=== PATIENT | female | born 1950 | race Caucasian/White ===

== ENCOUNTER 2016-07-16 12:29 | Inpatient (IN) | payer OTHER, BC ==
[~2016-07-16] VITALS: Ht 165.1 cm; Wt 139.0 kg
[~2016-07-16 12:29] MED LIST: ALDACTONE25 MG PO; AMLODIPINE BESY10 MG PO; AMLODIPINE BESYL5 MG PO; ASPIRIN E.C.81 M1 PO; ASPIRIN81 M2 PO; ATARAX,VISTARIL25 MG PO; ATIVAN1 M1 PO; ATORVASTATIN CA10 MG PO; Aspirin E.C. PO; BUSPAR10 MG PO; BUSPAR5 MG PO; BUSPIRONE HCL10 MG PO; CARTIA XT180 MG PO; CEFTIN500 MG PO; CEFTRIAXONE2 G1 IV; CELEXA20 MG PO; CEPHALEXIN500 MG PO; CITALOPRAM HBR20 MG PO; COUMADIN10 MG PO; COUMADIN4 MG PO; COUMADIN6 MG PO; COUMADIN7.5 MG PO; CYMBALTA60 MG PO; Cardizem CD,Cartia X PO; Cipro PO; DAILY VITE1 EAC1 PO; DILTIAZEM 24HR180 MG PO; DIOVAN HCT 11 TABLET PO; DOCUSATE SODIU100 MG PO; DOXYCYCLINE HY100 M3 PO; DULCOLAX5 MG PO; EFFEXOR XR75 MG PO; ELIQUIS2.5 MG PO; ELIQUIS5 MG PO; FISH OIL 1,0001 EAC7 PO; FLONASE16 G1 BOTH NARES; FUROSEMIDE40 MG PO; GABAPENTIN300 MG PO; GLIPIZIDE XL10 MG PO; GLIPIZIDE10 M1 PO; GLIPIZIDE5 MG PO; GLUCOPHAGE1000 MG PO; GLUCOTROL XL10 MG PO; Glucotrol PO; Glucotrol XL PO; HUMALOG100 UNIT/1 SC; HUMULIN R500 UNITS/ SC; HYDROCHLOROTH12.5 M3 PO; HYDROXYZINE HCL25 MG PO; INSULIN LONG ACTING SC; INSULIN SHORT ACTING SC; JANUVIA100 MG PO; KEFLEX500 MG PO; KETOCONAZOLE60 GM TP; LANTUS 10100 UNITS/ SC; LANTUS 3 M100 UNITS/ SC; LANTUS100 UNIT/1 SQ; LEVEMIR FL100 UNIT/1 SC; LEVEMIR100 UNIT/2 SC; LIPITOR40 MG PO; LISINOPRIL20 MG PO; LISINOPRIL40 MG PO; LO-DOSE ASPIRIN81 M1 PO; LOPRESSOR100 M1 PO; LOVENOX120 MG/0.8 SC; Lasix PO; Lopressor PO; METFORMIN HCL1000 M1 PO; METFORMIN HCL1000 MG PO; METOPROLOL TAR100 MG PO; MUPIROCIN15 GM TP; NEURONTIN300 MG PO; NOVOLOG 10100 UNITS/ SC; NOVOLOG PE100 UNITS/ SC; NYSTATIN-TRIAMC15 GM TP; NYSTATIN15 GM TP; PERCOCET 5/31 TABLET PO; PREDNISONE10 MG PO; Percocet 5/325,Endoc PO; SIMVASTATIN40 M1 PO; ST. JOSEPH ASPI81 MG PO; TAZTIA XT180 M1 PO; TOPROL XL100 MG PO; TRAMADOL HCL50 MG PO; VENLAFAXINE HC150 M1 PO; VENLAFAXINE HCL75 M3 PO; VENLAFAXINE HCL75 MG PO; VITAMIN D1000 UNIT PO; VITAMIN D31000 UNIT PO; VITAMIN E100 UNIT PO; WARFARIN SODIU7.5 MG PO; Xarelto PO; ZYVOX600 MG PO; celeXA PO
[2016-07-16 13:34] LABS: HEMATOCRIT 37.3 % (36.0-46.0); MCH 30.3 PG (29.0-34.0); MCHC 32.7 G/DL (30.0-36.0); MCV 92.8 FL (83-99); MEAN PLAT.VOLUME 9.8 uM^3 (9.5-12.4); PLATELET COUNT 312 K/uL (156-360); RBC DIS.WIDTH-CV 14.8 % (11.8-14.6); RBC DIS.WIDTH-SD 48.1 % (39-53); RED BLOOD COUNT 4.02 M/uL (3.80-5.20); WHITE BLOOD COUNT 10.5 K/uL (4.1-10.2)
[2016-07-16 13:45] LABS: CHLORIDE 98 mEq/L (99-109); POTASSIUM 4.6 mEq/L (3.7-5.4); SODIUM 134 mEq/L (136-147)
[2016-07-16 13:48] LABS: ANION GAP 10 MEQ/L (2-14)
[2016-07-16 13:50] LABS: GFR ESTIMATE (CALCULATED) > 59 mL/min/
[2016-07-16 13:51] LABS: UREA NITROGEN (BUN) 17 mg/dL (9-23)
[2016-07-16 13:53] LABS: GLUCOSE 543 mg/dL (70-99)
[2016-07-16 13:56] LABS: TROP-I INTERPRETATION NEGATIVE; TROPONIN-I 0.06 ng/mL (0.0-0.30)
[2016-07-16] MEDS ORDERED: XARELTO20 MG PO (15:47)
[2016-07-16] MEDS ORDERED: CEFDINIR300 MG PO (17:08)
[2016-07-16] MEDS ORDERED: MILK OF MAGN PO (17:10)
[2016-07-16] MEDS ORDERED: NOVOLIN N100 UNITS/ SC (17:12)
[2016-07-16] MEDS ORDERED: NOVOLIN,HU100 UNITS1 SC (17:12)
[2016-07-16] MEDS ORDERED: TEMOVATE 0.05%30 GM TP (17:17)
[2016-07-16 17:31] LABS: POINT-OF-CARE METER ID UU14100415; POINT-OF-CARE USER ID PUTMLD10
[2016-07-16 20:18] VITALS: BP 136/69
[2016-07-16 20:28] LABS: TROP-I INTERPRETATION NEGATIVE; TROPONIN-I 0.06 ng/mL (0.0-0.30)
[2016-07-17 00:27] VITALS: BP 150/79
[2016-07-17 02:34] LABS: TROP-I INTERPRETATION NEGATIVE; TROPONIN-I 0.05 ng/mL (0.0-0.30)
[2016-07-17 04:21] VITALS: BP 159/75
[2016-07-17 07:39] VITALS: BP 176/79
[2016-07-17 08:27] LABS: HEMATOCRIT 36.1 % (36.0-46.0); MCH 30.6 PG (29.0-34.0); MCHC 32.7 G/DL (30.0-36.0); MCV 93.8 FL (83-99); MEAN PLAT.VOLUME 9.8 uM^3 (9.5-12.4); PLATELET COUNT 295 K/uL (156-360); RED BLOOD COUNT 3.85 M/uL (3.80-5.20); WHITE BLOOD COUNT 8.7 K/uL (4.1-10.2)
[2016-07-17 08:39] LABS: ANION GAP 7 MEQ/L (2-14); CHLORIDE 98 MEQ/L (99-109); GFR ESTIMATE (CALCULATED) > 59 mL/min/; SAMPLE HEMOLYSIS CHECK 0; SAMPLE ICTERIC CHECK 0; SAMPLE LIPEMIA CHECK 0; SODIUM 137 MEQ/L (136-147); UREA NITROGEN (BUN) 13 mg/dL (9-23)
[2016-07-17 08:40] LABS: GLUCOSE 199 mg/dL (70-99); POTASSIUM 3.5 MEQ/L (3.7-5.4)
[2016-07-17 11:52] VITALS: BP 138/64
[2016-07-17 15:39] VITALS: BP 148/63
[2016-07-17 19:44] VITALS: BP 145/58
[2016-07-18 00:46] VITALS: BP 157/33; BP 157/73
[2016-07-18 04:04] VITALS: BP 141/68
[2016-07-18 08:07] VITALS: BP 141/64
[2016-07-18 08:34] LABS: HEMATOCRIT 39.9 % (36.0-46.0); MCH 30.4 PG (29.0-34.0); MCHC 32.6 G/DL (30.0-36.0); MCV 93.2 FL (83-99); MEAN PLAT.VOLUME 10.5 uM^3 (9.5-12.4); PLATELET COUNT 333 K/uL (156-360); RBC DIS.WIDTH-CV 14.6 % (11.8-14.6); RBC DIS.WIDTH-SD 49.4 % (39-53); RED BLOOD COUNT 4.28 M/uL (3.80-5.20); WHITE BLOOD COUNT 8.8 K/uL (4.1-10.2)
[2016-07-18 08:56] LABS: ANION GAP 9 MEQ/L (2-14); CHLORIDE 98 MEQ/L (99-109); GFR ESTIMATE (CALCULATED) > 59 mL/min/; GLUCOSE 290 mg/dL (70-99); POTASSIUM 4.5 MEQ/L (3.7-5.4); SAMPLE HEMOLYSIS CHECK 0; SAMPLE ICTERIC CHECK 0; SAMPLE LIPEMIA CHECK 0; SODIUM 137 MEQ/L (136-147); UREA NITROGEN (BUN) 15 mg/dL (9-23)
[2016-07-18 11:25] VITALS: BP 147/73
[2016-07-18 16:25] VITALS: BP 149/66
[2016-07-18 20:00] VITALS: BP 142/64
[2016-07-19] VITALS: BP 161/73
[2016-07-19 04:00] VITALS: BP 166/80
[2016-07-19 06:56] LABS: HEMATOCRIT 37.5 % (36.0-46.0); MCH 30.5 PG (29.0-34.0); MCHC 33.1 G/DL (30.0-36.0); MCV 92.4 FL (83-99); MEAN PLAT.VOLUME 10.1 uM^3 (9.5-12.4); PLATELET COUNT 337 K/uL (156-360); RBC DIS.WIDTH-CV 14.6 % (11.8-14.6); RBC DIS.WIDTH-SD 49.6 % (39-53); RED BLOOD COUNT 4.06 M/uL (3.80-5.20)
[2016-07-19 06:58] LABS: WHITE BLOOD COUNT 11.6 K/uL (4.1-10.2)
[2016-07-19 07:21] LABS: ANION GAP 7 MEQ/L (2-14); CHLORIDE 91 MEQ/L (99-109); GFR ESTIMATE (CALCULATED) > 59 mL/min/; POTASSIUM 4.3 MEQ/L (3.7-5.4); SAMPLE HEMOLYSIS CHECK 0; SAMPLE ICTERIC CHECK 0; SAMPLE LIPEMIA CHECK 0; UREA NITROGEN (BUN) 22 mg/dL (9-23)
[2016-07-19 07:30] LABS: GLUCOSE 428 mg/dL (70-99); SODIUM 130 MEQ/L (136-147)
[2016-07-19 07:49] VITALS: BP 168/79
[2016-07-19 11:05] VITALS: BP 159/74
[2016-07-19 11:26] LABS: POINT-OF-CARE METER ID UU14188625
[2016-07-19 11:26] LABS: POINT-OF-CARE METER ID UU14188625
[2016-07-19 15:06] VITALS: BP 129/63
[2016-07-19 20:00] VITALS: BP 147/66
[2016-07-20] VITALS: BP 133/64
[2016-07-20 04:00] VITALS: BP 141/68
[2016-07-20 04:08] LABS: HEMATOCRIT 38.4 % (36.0-46.0); MCH 29.8 PG (29.0-34.0); MCHC 32.3 G/DL (30.0-36.0); MCV 92.3 FL (83-99); MEAN PLAT.VOLUME 9.8 uM^3 (9.5-12.4); PLATELET COUNT 323 K/uL (156-360); RBC DIS.WIDTH-CV 14.6 % (11.8-14.6); RBC DIS.WIDTH-SD 47.6 % (39-53); RED BLOOD COUNT 4.16 M/uL (3.80-5.20); WHITE BLOOD COUNT 11.3 K/uL (4.1-10.2)
[2016-07-20 04:19] LABS: CHLORIDE 92 mEq/L (99-109); POTASSIUM 4.5 mEq/L (3.7-5.4); SODIUM 132 mEq/L (136-147)
[2016-07-20 04:22] LABS: ANION GAP 10 MEQ/L (2-14)
[2016-07-20 04:24] LABS: GFR ESTIMATE (CALCULATED) > 59 mL/min/
[2016-07-20 04:25] LABS: UREA NITROGEN (BUN) 25 mg/dL (9-23)
[2016-07-20 04:30] LABS: GLUCOSE 422 mg/dL (70-99)
[2016-07-20 08:17] LABS: POINT-OF-CARE METER ID UU14174225
[2016-07-20 08:48] VITALS: BP 128/64
[2016-07-20 11:30] VITALS: BP 151/57
[2016-07-20 16:57] LABS: POINT-OF-CARE METER ID UU14174225
[2016-07-21 02:55] LABS: POINT-OF-CARE METER ID UU14174225
[2016-07-21 04:00] VITALS: BP 132/65
[2016-07-21 08:19] LABS: POINT-OF-CARE METER ID UU14188625
[2016-07-21 08:21] VITALS: BP 132/66
[2016-07-21 10:50] LABS: HEMATOCRIT 41.6 % (36.0-46.0); MCH 29.4 PG (29.0-34.0); MCHC 31.7 G/DL (30.0-36.0); MCV 92.7 FL (83-99); MEAN PLAT.VOLUME 10.2 uM^3 (9.5-12.4); PLATELET COUNT 318 K/uL (156-360); RBC DIS.WIDTH-CV 14.4 % (11.8-14.6); RBC DIS.WIDTH-SD 48.8 % (39-53); RED BLOOD COUNT 4.49 M/uL (3.80-5.20); WHITE BLOOD COUNT 12.9 K/uL (4.1-10.2)
[2016-07-21 11:07] LABS: ANION GAP 12 MEQ/L (2-14); CHLORIDE 89 MEQ/L (99-109); GFR ESTIMATE (CALCULATED) > 59 mL/min/; GLUCOSE 373 mg/dL (70-99); SAMPLE HEMOLYSIS CHECK 0; SAMPLE ICTERIC CHECK 0; SAMPLE LIPEMIA CHECK 0; SODIUM 129 MEQ/L (136-147); UREA NITROGEN (BUN) 25 mg/dL (9-23)
[2016-07-21 12:15] LABS: POINT-OF-CARE METER ID UU14188625
[2016-07-21 12:16] VITALS: BP 143/61
[2016-07-21 15:57] VITALS: BP 140/62
[2016-07-21 19:18] VITALS: BP 148/75
[2016-07-21 23:29] VITALS: BP 170/71
[2016-07-22 04:07] VITALS: BP 156/69
[2016-07-22 07:44] VITALS: BP 156/81
[2016-07-22 10:56] LABS: ANION GAP 9 MEQ/L (2-14); CHLORIDE 92 MEQ/L (99-109); GFR ESTIMATE (CALCULATED) > 59 mL/min/; GLUCOSE 365 mg/dL (70-99); POTASSIUM 4.2 MEQ/L (3.7-5.4); SAMPLE HEMOLYSIS CHECK 0; SAMPLE ICTERIC CHECK 0; SAMPLE LIPEMIA CHECK 0; SODIUM 132 MEQ/L (136-147); UREA NITROGEN (BUN) 26 mg/dL (9-23)
[2016-07-22 11:42] VITALS: BP 157/74
[2016-07-22 20:45] LABS: POINT-OF-CARE METER ID UU14174225
[2016-07-23 00:19] VITALS: BP 143/67
[2016-07-23 08:19] VITALS: BP 132/64
[2016-07-23 09:23] LABS: POINT-OF-CARE METER ID UU14174225
[2016-07-23 10:10] LABS: HEMATOCRIT 42.3 % (36.0-46.0); MCH 29.2 PG (29.0-34.0); MCHC 31.4 G/DL (30.0-36.0); MEAN PLAT.VOLUME 10.2 uM^3 (9.5-12.4); PLATELET COUNT 286 K/uL (156-360); RBC DIS.WIDTH-CV 14.5 % (11.8-14.6); RED BLOOD COUNT 4.55 M/uL (3.80-5.20)
[2016-07-23 10:12] LABS: WHITE BLOOD COUNT 7.9 K/uL (4.1-10.2)
[2016-07-23 10:24] LABS: ANION GAP 7 MEQ/L (2-14); CHLORIDE 94 MEQ/L (99-109); GFR ESTIMATE (CALCULATED) > 59 mL/min/; GLUCOSE 259 mg/dL (70-99); POTASSIUM 3.9 MEQ/L (3.7-5.4); SAMPLE HEMOLYSIS CHECK 0; SAMPLE ICTERIC CHECK 0; SAMPLE LIPEMIA CHECK 0; SODIUM 135 MEQ/L (136-147); UREA NITROGEN (BUN) 27 mg/dL (9-23)
[2016-07-23 10:53] VITALS: BP 130/68
[2016-07-23 16:00] VITALS: BP 135/69
[2016-07-24 08:00] VITALS: BP 151/82
[2016-07-24 09:05] LABS: POINT-OF-CARE METER ID UU14188625
[2016-07-24 09:24] LABS: HEMATOCRIT 43.4 % (36.0-46.0); MCH 30.7 PG (29.0-34.0); MCHC 32.9 G/DL (30.0-36.0); MCV 93.1 FL (83-99); MEAN PLAT.VOLUME 10.6 uM^3 (9.5-12.4); PLATELET COUNT 306 K/uL (156-360); RBC DIS.WIDTH-CV 14.6 % (11.8-14.6); RED BLOOD COUNT 4.66 M/uL (3.80-5.20); WHITE BLOOD COUNT 7.7 K/uL (4.1-10.2)
[2016-07-24 09:50] LABS: ANION GAP 7 MEQ/L (2-14); CHLORIDE 97 MEQ/L (99-109); GFR ESTIMATE (CALCULATED) > 59 mL/min/; GLUCOSE 146 mg/dL (70-99); POTASSIUM 3.9 MEQ/L (3.7-5.4); SAMPLE HEMOLYSIS CHECK 0; SAMPLE ICTERIC CHECK 0; SAMPLE LIPEMIA CHECK 0; SODIUM 138 MEQ/L (136-147); UREA NITROGEN (BUN) 25 mg/dL (9-23)
[2016-07-24 12:00] VITALS: BP 150/67
[2016-07-24 12:33] LABS: POINT-OF-CARE METER ID UU14188625
[2016-07-24] MEDS ORDERED: ADVAIR HFA120 INHALA IH (14:21)
[2016-07-24] MEDS ORDERED: PREDNISONE20 MG PO (14:21)
[2016-07-24] MEDS ORDERED: LASIX40 MG PO (14:21)
[2016-07-24] MEDS ORDERED: BENZONATATE100 MG PO (14:21)
[2016-07-24] MEDS ORDERED: SPIRIVA RESPIMAT4 GM IH (14:21)
[2016-07-24 16:00] VITALS: BP 128/69
[2016-07-24 17:14] LABS: POINT-OF-CARE METER ID UU14188625
[2016-07-26 11:54] LABS: POINT-OF-CARE METER ID UU14174225
== END 2016-07-24 18:34 | DRG 190 ==
LOC: EME → EDBD 12:29 → EME 12:29 → 5SOUTH 17:54 → EDOF 17:54 → 5SOUTH 19:36
PROVIDERS: Emergency Medicine; Hospitalist; Nurse Practitioner Family
PROC: 5A09357 Assistance with Respiratory Ventilation, Less than 24 Consecutive Hours, Continuous Positive Airway Pressure (ICD-10-PCS; principal; 2016-07-17)
PROC: 0HDMXZZ Extraction of Right Foot Skin, External Approach (ICD-10-PCS; 2016-07-19)
DX: J44.0 Chronic obstructive pulmonary disease with (acute) lower respiratory infection (principal); J18.9 Pneumonia, unspecified organism; E87.1 Hypo-osmolality and hyponatremia; L97.509 Non-pressure chronic ulcer of other part of unspecified foot with unspecified severity; E66.01 Morbid (severe) obesity due to excess calories; Z68.43 Body mass index [BMI] 50.0-59.9, adult; I50.23 Acute on chronic systolic (congestive) heart failure; J96.01 Acute respiratory failure with hypoxia; G47.33 Obstructive sleep apnea (adult) (pediatric); L12.0 Bullous pemphigoid; E11.40 Type 2 diabetes mellitus with diabetic neuropathy, unspecified; E11.65 Type 2 diabetes mellitus with hyperglycemia; E11.621 Type 2 diabetes mellitus with foot ulcer; I25.2 Old myocardial infarction; E78.5 Hyperlipidemia, unspecified; I10 Essential (primary) hypertension; I87.2 Venous insufficiency (chronic) (peripheral); I27.2 Other secondary pulmonary hypertension; J45.901 Unspecified asthma with (acute) exacerbation; Z95.5 Presence of coronary angioplasty implant and graft; J44.1 Chronic obstructive pulmonary disease with (acute) exacerbation; J98.11 Atelectasis; L89.893 Pressure ulcer of other site, stage 3; K59.04 Chronic idiopathic constipation; I89.0 Lymphedema, not elsewhere classified; L97.411 Non-pressure chronic ulcer of right heel and midfoot limited to breakdown of skin
CPT/HCPCS: 71010; 71020; 71275; 80048; 82948; 83880; 84484; 85027; 87040; 87070; 87205; 93005; 93306; 94640; 94640 76; 94660; 94760; 94799; 97530 GP; 99202; 99281; 99285; J0456; J0696; J1815; J1940; J2405; J2543; J2930; J3370; J7030; J7050; J7512; J7644

== ENCOUNTER 2016-09-02 13:26 | Inpatient (IN) | payer OTHER, BC ==
[~2016-09-02] VITALS: Ht 165.1 cm; Wt 124.4 kg
[~2016-09-02 13:26] MED LIST changes: +ADVAIR HFA120 INHALA IH; +BENZONATATE100 MG PO; +CEFDINIR300 MG PO; +LASIX40 MG PO; +MILK OF MAGN PO; +NOVOLIN N100 UNITS/ SC; +NOVOLIN,HU100 UNITS1 SC; +PREDNISONE20 MG PO; +SPIRIVA RESPIMAT4 GM IH; +TEMOVATE 0.05%30 GM TP; +XARELTO20 MG PO
[2016-09-02 13:48] LABS: HEMATOCRIT 41.6 % (36.0-46.0); MCH 30.4 PG (29.0-34.0); MCHC 33.2 G/DL (30.0-36.0); MCV 91.6 FL (83-99); MEAN PLAT.VOLUME 9.9 uM^3 (9.5-12.4); PLATELET COUNT 286 K/uL (156-360); RBC DIS.WIDTH-CV 14.6 % (11.8-14.6); RBC DIS.WIDTH-SD 49.1 % (39-53); RED BLOOD COUNT 4.54 M/uL (3.80-5.20); WHITE BLOOD COUNT 10.9 K/uL (4.1-10.2)
[2016-09-02 14:03] LABS: CHLORIDE 96 mEq/L (99-109); SODIUM 136 mEq/L (136-147)
[2016-09-02 14:06] LABS: ANION GAP 11 MEQ/L (2-14)
[2016-09-02 14:08] LABS: INTER. NORMALIZED RATIO 1.2; PTT 32.4 (25-32)
[2016-09-02 14:09] LABS: GFR ESTIMATE (CALCULATED) 53 mL/min/
[2016-09-02 14:10] LABS: UREA NITROGEN (BUN) 22 mg/dL (9-23)
[2016-09-02 14:11] LABS: TROP-I INTERPRETATION NEGATIVE; TROPONIN-I < 0.01 ng/mL (0.0-0.30)
[2016-09-02 14:13] LABS: GLUCOSE 406 mg/dL (70-99)
[2016-09-02 14:51] LABS: INFLUENZA A VIRAL ANTIGEN NEGATIVE; INFLUENZA B VIRAL ANTIGEN NEGATIVE
[2016-09-02 16:50] LABS: POINT-OF-CARE METER ID UU13113702
[2016-09-02] MEDS ORDERED: HYDROCHLOROTH12.5 M3 PO (17:35)
[2016-09-02] MEDS ORDERED: SPIRIVA RESPIMAT4 G1 IH (17:42)
[2016-09-02] MEDS ORDERED: BREO ELLIPTA I1 EACH IH (17:43)
[2016-09-02] MEDS ORDERED: METOPROLOL TAR100 MG PO (17:44)
[2016-09-02] MEDS ORDERED: SSD25GM TP (17:45)
[2016-09-02 20:20] LABS: TOTAL BILIRUBIN 1.1 mg/dL (0.0-1.0)
[2016-09-02 20:21] LABS: ALKALINE PHOSPHATASE 71 IU/L (3-129)
[2016-09-02 20:23] LABS: DIRECT BILIRUBIN 0.4 mg/dL (0.0-0.3)
[2016-09-02 20:24] LABS: LIPASE 23 U/L (1.0-51.0)
[2016-09-02 20:39] VITALS: BP 106/55
[2016-09-02 20:55] LABS: TROP-I INTERPRETATION NEGATIVE; TROPONIN-I 0.01 ng/mL (0.0-0.30)
[2016-09-02 22:00] LABS: POINT-OF-CARE METER ID UU13113698
[2016-09-02 23:52] LABS: POINT-OF-CARE METER ID UU13113698
[2016-09-03 02:04] LABS: TROP-I INTERPRETATION NEGATIVE; TROPONIN-I < 0.01 ng/mL (0.0-0.30)
[2016-09-03 03:59] VITALS: BP 121/59
[2016-09-03 06:02] LABS: HEMATOCRIT 38.5 % (36.0-46.0); MCH 29.9 PG (29.0-34.0); MCHC 32.2 G/DL (30.0-36.0); MCV 92.8 FL (83-99); PLATELET COUNT 251 K/uL (156-360); RBC DIS.WIDTH-CV 14.6 % (11.8-14.6); RBC DIS.WIDTH-SD 49.8 % (39-53); RED BLOOD COUNT 4.15 M/uL (3.80-5.20)
[2016-09-03 06:27] LABS: ANION GAP 7 MEQ/L (2-14); CHLORIDE 102 MEQ/L (99-109); GFR ESTIMATE (CALCULATED) > 59 mL/min/; POTASSIUM 3.8 MEQ/L (3.7-5.4); SAMPLE HEMOLYSIS CHECK 0; SAMPLE ICTERIC CHECK 0; SAMPLE LIPEMIA CHECK 0; SODIUM 140 MEQ/L (136-147); UREA NITROGEN (BUN) 21 mg/dL (9-23)
[2016-09-03 06:34] LABS: GLUCOSE 168 mg/dL (70-99)
[2016-09-03 07:47] LABS: POINT-OF-CARE METER ID UU13113698
[2016-09-03 08:22] VITALS: BP 133/73
[2016-09-03 11:45] LABS: POINT-OF-CARE METER ID UU13113702
[2016-09-03 12:22] VITALS: BP 125/58
[2016-09-03 12:31] LABS: POINT-OF-CARE METER ID UU13113698
[2016-09-03 16:00] VITALS: BP 129/63
[2016-09-03 17:03] LABS: POINT-OF-CARE METER ID UU13113698
[2016-09-03 20:00] VITALS: BP 132/76
[2016-09-03 21:47] LABS: POINT-OF-CARE METER ID UU13113698
[2016-09-04] VITALS (7 sets, daily range): BP systolic 108–160; BP diastolic 52–76
[2016-09-04 08:32] LABS: POINT-OF-CARE METER ID UU13113698
[2016-09-04 09:33] LABS: HEMATOCRIT 41.4 % (36.0-46.0); MCH 29.9 PG (29.0-34.0); MCHC 32.1 G/DL (30.0-36.0); MEAN PLAT.VOLUME 9.7 uM^3 (9.5-12.4); PLATELET COUNT 289 K/uL (156-360); RBC DIS.WIDTH-CV 14.5 % (11.8-14.6); RBC DIS.WIDTH-SD 49.1 % (39-53); RED BLOOD COUNT 4.45 M/uL (3.80-5.20)
[2016-09-04 10:03] LABS: ANION GAP 7 MEQ/L (2-14); CHLORIDE 95 MEQ/L (99-109); GFR ESTIMATE (CALCULATED) > 59 mL/min/; GLUCOSE 232 mg/dL (70-99); POTASSIUM 3.7 MEQ/L (3.7-5.4); SAMPLE HEMOLYSIS CHECK 0; SAMPLE ICTERIC CHECK 0; SAMPLE LIPEMIA CHECK 0; SODIUM 136 MEQ/L (136-147); UREA NITROGEN (BUN) 20 mg/dL (9-23)
[2016-09-04 12:15] LABS: POINT-OF-CARE METER ID UU13113698
[2016-09-04 16:25] LABS: POINT-OF-CARE METER ID UU13113698
[2016-09-05 04:10] VITALS: BP 138/67
[2016-09-05 07:31] VITALS: BP 123/58
[2016-09-05 07:37] LABS: POINT-OF-CARE METER ID UU13113698
[2016-09-05 11:15] VITALS: BP 105/53
[2016-09-05 12:08] LABS: POINT-OF-CARE METER ID UU13113698
[2016-09-05 15:19] VITALS: BP 140/66
[2016-09-05 16:14] LABS: POINT-OF-CARE METER ID UU13113698
[2016-09-05 18:59] LABS: POINT-OF-CARE METER ID UU13113698
[2016-09-05 19:10] VITALS: BP 135/62
[2016-09-06 00:15] VITALS: BP 145/69
[2016-09-06 04:30] VITALS: BP 141/67
[2016-09-06 07:13] LABS: BASOPHIL COUNT 0.1 K/uL (0-0.1); EOSINOPHIL COUNT 0.2 K/uL (0-0.3); HEMATOCRIT 39.3 % (36.0-46.0); IMMATURE GRANULOCYTE (%) 0.5 % (0.0-0.7); IMMATURE GRANULOCYTE COUNT 0.1 K/uL; INSTRUMENT ABS NEUTROPHIL CT 7.2 K/uL; LYMPHOCYTE COUNT 2.3 K/uL (1.0-2.8); MCHC 32.3 G/DL (30.0-36.0); MCV 92.7 FL (83-99); MONOCYTE (%) 10.8 % (3-12); MONOCYTE COUNT 1.2 K/uL (0-0.8); NEUTROPHIL (%) 65.2 % (45-76); NEUTROPHIL COUNT 7.2 K/uL (1.8-6.4); PLATELET COUNT 271 K/uL (156-360); RBC DIS.WIDTH-CV 14.4 % (11.8-14.6); RBC DIS.WIDTH-SD 48.3 % (39-53); RED BLOOD COUNT 4.24 M/uL (3.80-5.20)
[2016-09-06 07:33] LABS: ANION GAP 5 MEQ/L (2-14); CHLORIDE 96 MEQ/L (99-109); GFR ESTIMATE (CALCULATED) > 59 mL/min/; GLUCOSE 263 mg/dL (70-99); POTASSIUM 3.9 MEQ/L (3.7-5.4); SAMPLE HEMOLYSIS CHECK 0; SAMPLE ICTERIC CHECK 0; SAMPLE LIPEMIA CHECK 0; SODIUM 138 MEQ/L (136-147)
[2016-09-06 07:34] LABS: UREA NITROGEN (BUN) 31 mg/dL (9-23)
[2016-09-06 09:09] VITALS: BP 108/55
[2016-09-06 12:25] LABS: POINT-OF-CARE METER ID UU13113698; POINT-OF-CARE USER ID 606021404
[2016-09-06 12:41] VITALS: BP 100/56
[2016-09-06 13:08] LABS: POINT-OF-CARE METER ID UU13113698; POINT-OF-CARE USER ID AHSUCEG
[2016-09-06 13:09] LABS: POINT-OF-CARE METER ID UU13113698
== END 2016-09-06 14:53 | disposition home health service (06) | DRG 313 ==
LOC: EME → EDBD 13:26 → EDOF 18:54 → 4SOUTH 18:54
PROVIDERS: Emergency Medicine; Hospitalist; Internal Medicine
DX: R07.89 Other chest pain (principal); I11.0 Hypertensive heart disease with heart failure; Z68.42 Body mass index [BMI] 45.0-49.9, adult; K50.90 Crohn's disease, unspecified, without complications; I50.9 Heart failure, unspecified; E66.01 Morbid (severe) obesity due to excess calories; E11.42 Type 2 diabetes mellitus with diabetic polyneuropathy; E11.621 Type 2 diabetes mellitus with foot ulcer; I25.2 Old myocardial infarction; E11.65 Type 2 diabetes mellitus with hyperglycemia; E78.5 Hyperlipidemia, unspecified; G47.33 Obstructive sleep apnea (adult) (pediatric); S31.809A Unspecified open wound of unspecified buttock, initial encounter; L97.519 Non-pressure chronic ulcer of other part of right foot with unspecified severity; L30.4 Erythema intertrigo; F32.9 Major depressive disorder, single episode, unspecified; I27.2 Other secondary pulmonary hypertension; I08.3 Combined rheumatic disorders of mitral, aortic and tricuspid valves; J44.9 Chronic obstructive pulmonary disease, unspecified
CPT/HCPCS: 71020; 71275; 80048; 80076; 82948; 83605; 83690; 83880; 84484; 85025; 85027; 85610; 85730; 87040; 87502; 93005; 94640; 94640 76; 94799; 99281; 99284; J1815; J1940; J7512

== ENCOUNTER 2016-12-08 19:38 | Inpatient (IN) | payer OTHER, BC ==
[~2016-12-08] VITALS: Ht 162.6 cm; Wt 123.6 kg
[~2016-12-08 19:38] MED LIST changes: +BREO ELLIPTA I1 EACH IH; +SPIRIVA RESPIMAT4 G1 IH; +SSD25GM TP
[2016-12-08 21:23] LABS: HEMATOCRIT 38.8 % (36.0-46.0); MCH 28.9 PG (29.0-34.0); MCHC 32.5 G/DL (30.0-36.0); MEAN PLAT.VOLUME 9.6 uM^3 (9.5-12.4); PLATELET COUNT 291 K/uL (156-360); RBC DIS.WIDTH-CV 13.1 % (11.8-14.6); RBC DIS.WIDTH-SD 42.8 % (39-53); RED BLOOD COUNT 4.36 M/uL (3.80-5.20); WHITE BLOOD COUNT 10.8 K/uL (4.1-10.2)
[2016-12-08 21:40] LABS: CHLORIDE 97 mEq/L (99-109); POTASSIUM 4.3 mEq/L (3.7-5.4); SODIUM 132 mEq/L (136-147)
[2016-12-08 21:42] LABS: GLUCOSE 278 mg/dL (70-99)
[2016-12-08 21:44] LABS: ANION GAP 9 MEQ/L (2-14); TOTAL BILIRUBIN 0.8 mg/dL (0.0-1.0)
[2016-12-08 21:46] LABS: ALKALINE PHOSPHATASE 97 IU/L (3-129)
[2016-12-08 21:47] LABS: UREA NITROGEN (BUN) 16 mg/dL (9-23)
[2016-12-08 21:49] LABS: LIPASE 11 U/L (1.0-51.0)
[2016-12-08 22:25] LABS: GFR ESTIMATE (CALCULATED) > 59 mL/min/
[2016-12-08 22:50] LABS: TROP-I INTERPRETATION NEGATIVE; TROPONIN-I < 0.01 ng/mL (0.0-0.30)
[2016-12-09] MEDS ORDERED: FUROSEMIDE40 MG PO (00:29)
[2016-12-09] MEDS ORDERED: BUSPAR5 MG PO (00:29)
[2016-12-09] MEDS ORDERED: HYDROCHLOROTHIA25 MG PO (00:29)
[2016-12-09] MEDS ORDERED: ADVAIR HFA120 INHALA IH (00:30)
[2016-12-09] MEDS ORDERED: NOVOLIN,HU100 UNITS1 SC (00:33)
[2016-12-09] MEDS ORDERED: HYDROXYZINE HCL25 MG PO (00:34)
[2016-12-09] MEDS ORDERED: ROPINIROLE HC0.25 MG PO (00:34)
[2016-12-09] MEDS ORDERED: VITAMIN D32000 UNI1 PO (00:34)
[2016-12-09 01:41] LABS: POINT-OF-CARE METER ID UU13113702
[2016-12-09 01:47] LABS: ADD MIUA? YES; BILIRUBIN NEGATIVE; BLOOD SMALL; COLOR YELLOW ((YELLOW)); GLUCOSE (STRIP) >=500; KETONES NEGATIVE; LEUKOCYTES MODERATE; NITRITE POSITIVE; PROTEIN (STRIP) 30; SPECIFIC GRAVITY 1.009 (1.000-1.030); UROBILINOGEN 0.2 MG/DL (0.2-1.0)
[2016-12-09 02:00] LABS: BACTERIA 2+ /HPF; EPITHELIAL CELLS RARE /HPF; HYALINE CASTS 0-5 /LPF; MUCUS 1+ /LPF; RED BLOOD CELLS 0-5 /HPF (0-5); UCUL ADDED? YES; WHITE BLOOD CELLS 15-20 /HPF (0-5)
[2016-12-09 04:58] LABS: HEMATOCRIT 36.4 % (36.0-46.0); MCH 28.9 PG (29.0-34.0); MCHC 32.4 G/DL (30.0-36.0); MCV 89.2 FL (83-99); MEAN PLAT.VOLUME 9.9 uM^3 (9.5-12.4); PLATELET COUNT 255 K/uL (156-360); RBC DIS.WIDTH-CV 13.2 % (11.8-14.6); RBC DIS.WIDTH-SD 42.9 % (39-53); RED BLOOD COUNT 4.08 M/uL (3.80-5.20); WHITE BLOOD COUNT 6.8 K/uL (4.1-10.2)
[2016-12-09 05:12] LABS: CHLORIDE 105 mEq/L (99-109); POTASSIUM 3.7 mEq/L (3.7-5.4); SODIUM 138 mEq/L (136-147)
[2016-12-09 05:14] LABS: GLUCOSE 203 mg/dL (70-99)
[2016-12-09 05:15] LABS: ANION GAP 7 MEQ/L (2-14)
[2016-12-09 05:18] LABS: ALKALINE PHOSPHATASE 83 IU/L (3-129); GFR ESTIMATE (CALCULATED) > 59 mL/min/
[2016-12-09 05:19] LABS: UREA NITROGEN (BUN) 14 mg/dL (9-23)
[2016-12-09 05:19] LABS: TROP-I INTERPRETATION NEGATIVE; TROPONIN-I < 0.01 ng/mL (0.0-0.30)
[2016-12-09 05:35] LABS: TOTAL BILIRUBIN 0.6 mg/dL (0.0-1.0)
[2016-12-09 08:39] LABS: POINT-OF-CARE METER ID UU13113747
[2016-12-09 10:28] VITALS: BP 139/86
[2016-12-09 11:31] LABS: TROP-I INTERPRETATION NEGATIVE; TROPONIN-I < 0.01 ng/mL (0.0-0.30)
[2016-12-09 12:08] LABS: POINT-OF-CARE METER ID UU13113747
[2016-12-09 17:07] LABS: POINT-OF-CARE METER ID UU14174225
[2016-12-09 17:56] VITALS: BP 133/62
[2016-12-09 20:19] VITALS: BP 155/70
[2016-12-10 00:07] VITALS: BP 144/71
[2016-12-10 03:59] VITALS: BP 133/70
[2016-12-10 06:01] LABS: EOSINOPHIL (%) 0.9 % (0-5); EOSINOPHIL COUNT 0.1 K/uL (0-0.3); HEMATOCRIT 38.1 % (36.0-46.0); IMMATURE GRANULOCYTE (%) 0.6 % (0.0-0.7); IMMATURE GRANULOCYTE COUNT 0.1 K/uL; INSTRUMENT ABS NEUTROPHIL CT 7.2 K/uL; LYMPHOCYTE COUNT 0.6 K/uL (1.0-2.8); MCH 29.7 PG (29.0-34.0); MCHC 32.5 G/DL (30.0-36.0); MCV 91.1 FL (83-99); MEAN PLAT.VOLUME 9.7 uM^3 (9.5-12.4); MONOCYTE (%) 10.2 % (3-12); MONOCYTE COUNT 0.9 K/uL (0-0.8); NEUTROPHIL (%) 80.9 % (45-76); NEUTROPHIL COUNT 7.2 K/uL (1.8-6.4); PLATELET COUNT 268 K/uL (156-360); RBC DIS.WIDTH-CV 13.2 % (11.8-14.6); RED BLOOD COUNT 4.18 M/uL (3.80-5.20)
[2016-12-10 06:24] LABS: ANION GAP 11 MEQ/L (2-14); CHLORIDE 101 MEQ/L (99-109); GFR ESTIMATE (CALCULATED) > 59 mL/min/; POTASSIUM 3.7 MEQ/L (3.7-5.4); SAMPLE HEMOLYSIS CHECK 0; SAMPLE ICTERIC CHECK 0; SAMPLE LIPEMIA CHECK 0; SODIUM 139 MEQ/L (136-147); UREA NITROGEN (BUN) 11 mg/dL (9-23)
[2016-12-10 06:29] LABS: GLUCOSE 67 mg/dL (70-99)
[2016-12-10 08:10] VITALS: BP 145/82
[2016-12-10 11:18] VITALS: BP 131/66
[2016-12-10 12:15] LABS: POINT-OF-CARE METER ID UU13113717
[2016-12-10 15:23] VITALS: BP 133/67
[2016-12-10 16:17] LABS: POINT-OF-CARE METER ID UU14174225
[2016-12-11 00:15] VITALS: BP 146/68
[2016-12-11 04:28] VITALS: BP 139/75
[2016-12-11 07:57] VITALS: BP 142/74
[2016-12-11 11:13] VITALS: BP 121/54
[2016-12-11 15:08] VITALS: BP 124/61
[2016-12-11 21:00] VITALS: BP 146/64
[2016-12-11 21:24] LABS: POINT-OF-CARE METER ID UU14174225
[2016-12-12] VITALS: BP 180/66; BP 82/66
[2016-12-12 02:12] VITALS: BP 101/51
[2016-12-12 05:55] VITALS: BP 123/61
[2016-12-12 08:00] VITALS: BP 143/70
[2016-12-12 11:34] LABS: POINT-OF-CARE METER ID UU13113717
[2016-12-12 15:41] VITALS: BP 138/72
[2016-12-12 17:22] LABS: POINT-OF-CARE METER ID UU13113717
[2016-12-13 08:08] VITALS: BP 138/72
[2016-12-13 09:06] LABS: POINT-OF-CARE METER ID UU14188625
[2016-12-13 11:52] LABS: POINT-OF-CARE METER ID UU14188625
[2016-12-13 15:53] VITALS: BP 142/77
[2016-12-13 21:12] LABS: POINT-OF-CARE METER ID UU14188625
[2016-12-13 23:25] VITALS: BP 151/72
[2016-12-14 08:19] VITALS: BP 160/76
[2016-12-14] MEDS ORDERED: BACTRIM,SEPT1 TABLET PO (14:35)
== END 2016-12-14 17:24 | disposition home health service (06) | DRG 191 ==
LOC: EME 19:38 → EDOF 12-09 00:24 → 5SOUTH 12-09 00:24 → EDOF 12-09 09:49 → 5SOUTH 12-09 14:37
PROVIDERS: Hospitalist; Internal Medicine
DX: J44.9 Chronic obstructive pulmonary disease, unspecified (principal); E11.65 Type 2 diabetes mellitus with hyperglycemia; L03.90 Cellulitis, unspecified; N39.0 Urinary tract infection, site not specified; E87.1 Hypo-osmolality and hyponatremia; R53.1 Weakness; G47.33 Obstructive sleep apnea (adult) (pediatric); R21 Rash and other nonspecific skin eruption; E65 Localized adiposity; B37.2 Candidiasis of skin and nail; E86.0 Dehydration; E66.01 Morbid (severe) obesity due to excess calories; E03.9 Hypothyroidism, unspecified; I11.0 Hypertensive heart disease with heart failure; I50.9 Heart failure, unspecified; F32.9 Major depressive disorder, single episode, unspecified; I25.10 Atherosclerotic heart disease of native coronary artery without angina pectoris; M35.9 Systemic involvement of connective tissue, unspecified; E11.621 Type 2 diabetes mellitus with foot ulcer; L97.519 Non-pressure chronic ulcer of other part of right foot with unspecified severity; Z68.42 Body mass index [BMI] 45.0-49.9, adult; Z74.01 Bed confinement status; Z91.19 Patient's noncompliance with other medical treatment and regimen; Z79.52 Long term (current) use of systemic steroids; Z79.4 Long term (current) use of insulin; Z86.711 Personal history of pulmonary embolism
CPT/HCPCS: 71010; 71275; 80048; 80053; 81003; 82948; 83690; 84484; 85025; 85027; 87077; 87086; 87186; 93005; 94640; 94640 76; 94760; 94799; 97530 GP; 99281; 99285; G0378; G8987 GO CM; G8988 CI; J0692; J1815; J1940; J7030; J7050

== ENCOUNTER 2017-02-02 09:39 | Observation (INO) | payer OTHER, BC ==
[~2017-02-02] VITALS: Ht 157.5 cm; Wt 128.3 kg
[~2017-02-02 09:39] MED LIST changes: +BACTRIM,SEPT1 TABLET PO; +HYDROCHLOROTHIA25 MG PO; +ROPINIROLE HC0.25 MG PO; +VITAMIN D32000 UNI1 PO
[2017-02-02 10:44] LABS: BASOPHIL COUNT 0.1 K/uL (0-0.1); EOSINOPHIL (%) 2.1 % (0-5); EOSINOPHIL COUNT 0.2 K/uL (0-0.3); HEMATOCRIT 37.7 % (36.0-46.0); IMMATURE GRANULOCYTE (%) 0.7 % (0.0-0.7); IMMATURE GRANULOCYTE COUNT 0.1 K/uL; INSTRUMENT ABS NEUTROPHIL CT 6.9 K/uL; LYMPHOCYTE COUNT 0.7 K/uL (1.0-2.8); MCH 28.5 PG (29.0-34.0); MCHC 32.1 G/DL (30.0-36.0); MCV 88.7 FL (83-99); MEAN PLAT.VOLUME 9.5 uM^3 (9.5-12.4); MONOCYTE (%) 11.5 % (3-12); NEUTROPHIL (%) 76.9 % (45-76); NEUTROPHIL COUNT 6.9 K/uL (1.8-6.4); PLATELET COUNT 310 K/uL (156-360); RBC DIS.WIDTH-CV 14.5 % (11.8-14.6); RBC DIS.WIDTH-SD 46.8 % (39-53); RED BLOOD COUNT 4.25 M/uL (3.80-5.20); WHITE BLOOD COUNT 8.9 K/uL (4.1-10.2)
[2017-02-02 10:49] LABS: CARBON DIOXIDE (BICARBONATE) 31.8 MEQ/L (20-31)
[2017-02-02 10:56] LABS: CHLORIDE 90 mEq/L (99-109); SODIUM 131 mEq/L (136-147)
[2017-02-02 10:59] LABS: ANION GAP 13 MEQ/L (2-14)
[2017-02-02 11:01] LABS: GFR ESTIMATE (CALCULATED) 40 mL/min/
[2017-02-02 11:02] LABS: UREA NITROGEN (BUN) 30 mg/dL (9-23)
[2017-02-02 11:14] LABS: GLUCOSE 620 mg/dL (70-99)
[2017-02-02 11:24] LABS: ADD MIUA? YES; BILIRUBIN NEGATIVE; BLOOD MODERATE; COLOR YELLOW ((YELLOW)); GLUCOSE (STRIP) >=500; KETONES NEGATIVE; LEUKOCYTES MODERATE; NITRITE POSITIVE; PROTEIN (STRIP) NEGATIVE; SPECIFIC GRAVITY 1.011 (1.000-1.030); UROBILINOGEN 0.2 MG/DL (0.2-1.0)
[2017-02-02 11:30] LABS: BACTERIA 1+ /HPF; EPITHELIAL CELLS RARE /HPF; HYALINE CASTS 0-5 /LPF; MUCUS TRACE /LPF; RED BLOOD CELLS 0-5 /HPF (0-5); UCUL ADDED? YES; WHITE BLOOD CELLS 40-50 /HPF (0-5)
[2017-02-02] MEDS ORDERED: LIPITOR40 MG PO (13:12)
[2017-02-02] MEDS ORDERED: NOVOLIN,HU100 UNITS1 SC ×2 (13:13→13:16)
[2017-02-02] MEDS ORDERED: NOVOLIN N100 UNITS/ SC (13:14)
[2017-02-02] MEDS ORDERED: OXYBUTYNIN CHLO15 MG PO (13:17)
[2017-02-02 14:09] LABS: POINT-OF-CARE METER ID UU13113702
[2017-02-02 16:22] LABS: POINT-OF-CARE METER ID UU13113702
[2017-02-02 17:24] LABS: Estimated Average Glucose 283 mg/dL (70-123); HEMOGLOBIN A1c (GLYCOHEMOGLOB) 11.5 % HGB (Below 5.7)
[2017-02-02 17:28] VITALS: BP 126/60
[2017-02-02 17:37] LABS: POINT-OF-CARE METER ID UU14162513
[2017-02-02 20:46] LABS: POINT-OF-CARE METER ID UU14162513
[2017-02-02 21:38] VITALS: BP 156/77
[2017-02-03 00:13] LABS: POINT-OF-CARE METER ID UU14162513
[2017-02-03 00:50] VITALS: BP 123/58
[2017-02-03 07:35] LABS: ANION GAP 10 MEQ/L (2-14); CHLORIDE 98 MEQ/L (99-109); GFR ESTIMATE (CALCULATED) > 59 mL/min/; POTASSIUM 3.8 MEQ/L (3.7-5.4); SAMPLE HEMOLYSIS CHECK 0; SAMPLE ICTERIC CHECK 0; SAMPLE LIPEMIA CHECK 0; SODIUM 136 MEQ/L (136-147); UREA NITROGEN (BUN) 21 mg/dL (9-23)
[2017-02-03 07:36] LABS: GLUCOSE 144 mg/dL (70-99)
[2017-02-03 08:15] VITALS: BP 140/63
[2017-02-03] MEDS ORDERED: LEVAQUIN750 MG PO (09:25)
== END 2017-02-03 15:10 | disposition home or self-care (01) ==
LOC: EME 09:39 → 5WEST 15:35 → EDOF 15:35 → ENRESERV 15:36 → 5WEST 16:59
PROVIDERS: Emergency Medicine; Internal Medicine; Nurse Practitioner Adult Health
DX: E11.65 Type 2 diabetes mellitus with hyperglycemia (principal); N39.0 Urinary tract infection, site not specified; E87.1 Hypo-osmolality and hyponatremia; E86.0 Dehydration; N17.9 Acute kidney failure, unspecified; J44.9 Chronic obstructive pulmonary disease, unspecified; Z99.81 Dependence on supplemental oxygen; E66.01 Morbid (severe) obesity due to excess calories; Z68.43 Body mass index [BMI] 50.0-59.9, adult; I89.0 Lymphedema, not elsewhere classified; E11.621 Type 2 diabetes mellitus with foot ulcer; L97.429 Non-pressure chronic ulcer of left heel and midfoot with unspecified severity; F32.9 Major depressive disorder, single episode, unspecified; Z91.14 Patient's other noncompliance with medication regimen; T38.3X6A Underdosing of insulin and oral hypoglycemic [antidiabetic] drugs, initial encounter; Z86.718 Personal history of other venous thrombosis and embolism; Z86.711 Personal history of pulmonary embolism; Z90.49 Acquired absence of other specified parts of digestive tract; Z82.49 Family history of ischemic heart disease and other diseases of the circulatory system; Z80.9 Family history of malignant neoplasm, unspecified; Z79.4 Long term (current) use of insulin
CPT/HCPCS: 71010; 80048; 81003; 82010; 82803; 82948; 83036; 85025; 87086; 99281; 99285; G0378; J0692; J0696; J1200; J1815; J1885; J2405; J7030; J7050

== ENCOUNTER 2017-02-15 23:08 | Emergency (ER) | payer OTHER, BC ==
[~2017-02-15] VITALS: Ht 165.1 cm; Wt 125.7 kg
[~2017-02-15 23:08] MED LIST changes: +LEVAQUIN750 MG PO; +OXYBUTYNIN CHLO15 MG PO
[2017-02-16 00:18] LABS: HEMATOCRIT 36.4 % (36.0-46.0); MCH 28.5 PG (29.0-34.0); MCHC 32.1 G/DL (30.0-36.0); MCV 88.8 FL (83-99); PLATELET COUNT 364 K/uL (156-360); RBC DIS.WIDTH-CV 14.5 % (11.8-14.6); RBC DIS.WIDTH-SD 46.4 % (39-53); WHITE BLOOD COUNT 10.5 K/uL (4.1-10.2)
[2017-02-16 00:28] LABS: CHLORIDE 103 mEq/L (99-109); POTASSIUM 3.7 mEq/L (3.7-5.4)
[2017-02-16 00:29] LABS: SODIUM 140 mEq/L (136-147)
[2017-02-16 00:30] LABS: GLUCOSE 111 mg/dL (70-99)
[2017-02-16 00:32] LABS: ANION GAP 13 MEQ/L (2-14)
[2017-02-16 00:34] LABS: GFR ESTIMATE (CALCULATED) > 59 mL/min/
[2017-02-16 00:35] LABS: UREA NITROGEN (BUN) 16 mg/dL (9-23)
[2017-02-16 01:59] VITALS: BP 132/63
== END 2017-02-16 02:00 | disposition home or self-care (01) ==
LOC: EME → EDBD 23:08 → EME 02-16 02:00
PROVIDERS: Emergency Medicine
DX: M16.12 Unilateral primary osteoarthritis, left hip (principal); G89.29 Other chronic pain; M25.552 Pain in left hip; E11.9 Type 2 diabetes mellitus without complications; Z79.4 Long term (current) use of insulin; I11.0 Hypertensive heart disease with heart failure; I50.9 Heart failure, unspecified; Z99.3 Dependence on wheelchair
CPT/HCPCS: 72131; 72192; 80048; 81003; 85027; 99281; 99284; J3010

== ENCOUNTER 2017-02-20 00:06 | Inpatient (IN) | payer OTHER, BC ==
[~2017-02-20] VITALS: Ht 160 cm; Wt 123.9 kg
[2017-02-20 00:45] LABS: HEMATOCRIT 35.2 % (36.0-46.0); MCH 28.9 PG (29.0-34.0); MCHC 32.1 G/DL (30.0-36.0); MEAN PLAT.VOLUME 9.2 uM^3 (9.5-12.4); PLATELET COUNT 337 K/uL (156-360); RBC DIS.WIDTH-CV 14.3 % (11.8-14.6); RBC DIS.WIDTH-SD 47.6 % (39-53); RED BLOOD COUNT 3.91 M/uL (3.80-5.20); WHITE BLOOD COUNT 8.1 K/uL (4.1-10.2)
[2017-02-20 00:55] LABS: CHLORIDE 99 mEq/L (99-109); POTASSIUM 3.8 mEq/L (3.7-5.4); SODIUM 136 mEq/L (136-147)
[2017-02-20 00:57] LABS: GLUCOSE 233 mg/dL (70-99)
[2017-02-20 00:59] LABS: ANION GAP 12 MEQ/L (2-14)
[2017-02-20 01:01] LABS: GFR ESTIMATE (CALCULATED) > 59 mL/min/
[2017-02-20 01:02] LABS: UREA NITROGEN (BUN) 24 mg/dL (9-23)
[2017-02-20 01:09] LABS: TROP-I INTERPRETATION NEGATIVE; TROPONIN-I 0.01 ng/mL (0.0-0.30)
[2017-02-20 02:55] LABS: ADD MIUA? YES; BILIRUBIN NEGATIVE; BLOOD SMALL; COLOR YELLOW ((YELLOW)); GLUCOSE (STRIP) 50; KETONES NEGATIVE; LEUKOCYTES LARGE; NITRITE NEGATIVE; PROTEIN (STRIP) NEGATIVE; SPECIFIC GRAVITY 1.017 (1.000-1.030); UROBILINOGEN 0.2 MG/DL (0.2-1.0)
[2017-02-20 03:04] LABS: BACTERIA 3+ /HPF; BUDDING YEAST 4+; EPITHELIAL CELLS 2+ /HPF; MUCUS 1+ /LPF; RED BLOOD CELLS TNTC /HPF (0-5); UCUL ADDED? YES; WHITE BLOOD CELLS 20-30 /HPF (0-5)
[2017-02-20 06:00] VITALS: BP 152/68
[2017-02-20 06:51] LABS: POINT-OF-CARE METER ID UU14208750
[2017-02-20 07:45] VITALS: BP 150/68
[2017-02-20 11:21] LABS: POINT-OF-CARE METER ID UU14162508
[2017-02-20 13:37] VITALS: BP 139/63
[2017-02-20 16:38] LABS: POINT-OF-CARE METER ID UU14162508
[2017-02-20] MEDS ORDERED: MICROZIDE12.5 M1 PO (16:45)
[2017-02-20] MEDS ORDERED: VITAMIN D5000 UNI1 PO (16:46)
[2017-02-20] MEDS ORDERED: ALDACTONE25 MG PO (16:47)
[2017-02-20 16:53] VITALS: BP 127/58
[2017-02-20 21:19] LABS: POINT-OF-CARE METER ID UU14162508
[2017-02-20 23:42] VITALS: BP 111/56
[2017-02-21 02:59] VITALS: BP 149/69
[2017-02-21 06:33] LABS: HEMATOCRIT 32.3 % (36.0-46.0); MCH 30.6 PG (29.0-34.0); MCHC 34.1 G/DL (30.0-36.0); MCV 89.7 FL (83-99); MEAN PLAT.VOLUME 9.4 uM^3 (9.5-12.4); PLATELET COUNT 289 K/uL (156-360); RBC DIS.WIDTH-CV 14.1 % (11.8-14.6); RBC DIS.WIDTH-SD 46.1 % (39-53); WHITE BLOOD COUNT 8.4 K/uL (4.1-10.2)
[2017-02-21 06:40] LABS: POINT-OF-CARE METER ID UU14162508
[2017-02-21 06:57] LABS: ANION GAP 8 MEQ/L (2-14); CHLORIDE 103 MEQ/L (99-109); GFR ESTIMATE (CALCULATED) > 59 mL/min/; GLUCOSE 133 mg/dL (70-99); POTASSIUM 3.7 MEQ/L (3.7-5.4); SAMPLE HEMOLYSIS CHECK 0; SAMPLE ICTERIC CHECK 0; SAMPLE LIPEMIA CHECK 0; SODIUM 139 MEQ/L (136-147); UREA NITROGEN (BUN) 14 mg/dL (9-23)
[2017-02-21 07:39] VITALS: BP 103/58
[2017-02-21 11:30] VITALS: BP 106/53
[2017-02-21 11:33] LABS: POINT-OF-CARE METER ID UU14162508
[2017-02-21 15:45] VITALS: BP 148/66
[2017-02-21 17:08] LABS: POINT-OF-CARE METER ID UU14208750
[2017-02-21 21:24] LABS: POINT-OF-CARE METER ID UU14208750
[2017-02-22 00:20] VITALS: BP 139/67
[2017-02-22 06:37] LABS: POINT-OF-CARE METER ID UU14162508
[2017-02-22 12:00] LABS: POINT-OF-CARE METER ID UU14162508
[2017-02-22 13:59] VITALS: BP 113/59
[2017-02-22 16:35] LABS: POINT-OF-CARE METER ID UU14162508
[2017-02-22 16:48] VITALS: BP 120/59
[2017-02-22 21:26] LABS: POINT-OF-CARE METER ID UU14208750
[2017-02-22 23:46] VITALS: BP 144/65
[2017-02-23 06:26] LABS: POINT-OF-CARE METER ID UU14208750
[2017-02-23 07:47] VITALS: BP 129/61
[2017-02-23 08:07] LABS: HEMATOCRIT 32.9 % (36.0-46.0); MCH 28.6 PG (29.0-34.0); MCHC 31.6 G/DL (30.0-36.0); MCV 90.4 FL (83-99); MEAN PLAT.VOLUME 9.3 uM^3 (9.5-12.4); PLATELET COUNT 302 K/uL (156-360); RBC DIS.WIDTH-CV 13.9 % (11.8-14.6); RBC DIS.WIDTH-SD 45.9 % (39-53); RED BLOOD COUNT 3.64 M/uL (3.80-5.20); WHITE BLOOD COUNT 10.5 K/uL (4.1-10.2)
[2017-02-23 08:38] LABS: ANION GAP 7 MEQ/L (2-14); CHLORIDE 97 MEQ/L (99-109); GFR ESTIMATE (CALCULATED) > 59 mL/min/; POTASSIUM 3.8 MEQ/L (3.7-5.4); SAMPLE HEMOLYSIS CHECK 0; SAMPLE ICTERIC CHECK 0; SAMPLE LIPEMIA CHECK 0; SODIUM 137 MEQ/L (136-147); UREA NITROGEN (BUN) 13 mg/dL (9-23)
[2017-02-23 08:46] LABS: GLUCOSE 61 mg/dL (70-99)
[2017-02-23 11:04] LABS: POINT-OF-CARE METER ID UU14208750
[2017-02-23] MEDS ORDERED: POLYETHYLENE GL17 GM PO (11:14)
[2017-02-23] MEDS ORDERED: ENDOCET 5-3251 EACH PO (11:14)
[2017-02-23] MEDS ORDERED: DOCUSATE SODIU100 MG PO (11:14)
[2017-02-23] MEDS ORDERED: CIPRO500 MG PO (11:14)
== END 2017-02-23 15:19 | DRG 690 ==
LOC: EME → EDBD 00:06 → EDOF 04:10 → 2EAST 04:10 → ENRESERV 04:11 → 2EAST 05:17
PROVIDERS: Emergency Medicine; Hospitalist; Internal Medicine
DX: N39.0 Urinary tract infection, site not specified (principal); L03.115 Cellulitis of right lower limb; E66.01 Morbid (severe) obesity due to excess calories; J44.9 Chronic obstructive pulmonary disease, unspecified; R29.6 Repeated falls; I25.10 Atherosclerotic heart disease of native coronary artery without angina pectoris; E11.40 Type 2 diabetes mellitus with diabetic neuropathy, unspecified; E86.0 Dehydration; E11.22 Type 2 diabetes mellitus with diabetic chronic kidney disease; E11.621 Type 2 diabetes mellitus with foot ulcer; M17.0 Bilateral primary osteoarthritis of knee; M16.0 Bilateral primary osteoarthritis of hip; E11.618 Type 2 diabetes mellitus with other diabetic arthropathy; E78.00 Pure hypercholesterolemia, unspecified; M24.651 Ankylosis, right hip; M47.816 Spondylosis without myelopathy or radiculopathy, lumbar region; Z68.42 Body mass index [BMI] 45.0-49.9, adult; Z99.81 Dependence on supplemental oxygen; I13.0 Hypertensive heart and chronic kidney disease with heart failure and stage 1 through stage 4 chronic kidney disease, or unspecified chronic kidney disease; I50.9 Heart failure, unspecified; E03.9 Hypothyroidism, unspecified; N18.9 Chronic kidney disease, unspecified; Z91.81 History of falling; L89.620 Pressure ulcer of left heel, unstageable; L97.519 Non-pressure chronic ulcer of other part of right foot with unspecified severity; K59.00 Constipation, unspecified; R62.7 Adult failure to thrive; Z86.718 Personal history of other venous thrombosis and embolism; G47.33 Obstructive sleep apnea (adult) (pediatric); G25.81 Restless legs syndrome; G89.29 Other chronic pain; Z79.4 Long term (current) use of insulin; Z87.440 Personal history of urinary (tract) infections; Z86.711 Personal history of pulmonary embolism
CPT/HCPCS: 70450; 73522; 73560; 80048; 81003; 82948; 83605; 83880; 84484; 85027; 87040; 87086; 94799; 99281; 99285; J0696; J1815; J7030; J7050

== ENCOUNTER 2017-06-20 13:26 | Emergency (ER) | payer OTHER, BC ==
[~2017-06-20] VITALS: Ht 165.1 cm; Wt 144.6 kg
[~2017-06-20 13:26] MED LIST changes: +CIPRO500 MG PO; +ENDOCET 5-3251 EACH PO; +MICROZIDE12.5 M1 PO; +POLYETHYLENE GL17 GM PO; +VITAMIN D5000 UNI1 PO
[2017-06-20] MEDS ORDERED: PERCOCET 5/31 TABLET PO (15:09)
[2017-06-20 17:42] VITALS: BP 161/74
== END 2017-06-20 17:43 ==
LOC: EME 13:26
DX: S42.255A Nondisplaced fracture of greater tuberosity of left humerus, initial encounter for closed fracture (principal); W19.XXXA Unspecified fall, initial encounter; J44.9 Chronic obstructive pulmonary disease, unspecified; I11.0 Hypertensive heart disease with heart failure; I50.9 Heart failure, unspecified; E11.9 Type 2 diabetes mellitus without complications; Z79.4 Long term (current) use of insulin; Z86.718 Personal history of other venous thrombosis and embolism; E03.9 Hypothyroidism, unspecified; F41.9 Anxiety disorder, unspecified; F32.9 Major depressive disorder, single episode, unspecified; G25.81 Restless legs syndrome; E66.01 Morbid (severe) obesity due to excess calories; Z68.43 Body mass index [BMI] 50.0-59.9, adult; G47.30 Sleep apnea, unspecified; Z88.5 Allergy status to narcotic agent
CPT/HCPCS: 99281; 99285

== ENCOUNTER 2017-08-17 10:46 | Emergency (ER) | payer OTHER, BC ==
[~2017-08-17] VITALS: Ht 165.1 cm; Wt 161.2 kg
[2017-08-17 11:29] LABS: HEMATOCRIT 38.8 % (36.0-46.0); MCH 29.6 PG (29.0-34.0); MCHC 30.9 G/DL (30.0-36.0); MCV 95.8 FL (83-99); PLATELET COUNT 321 K/uL (156-360); RBC DIS.WIDTH-CV 14.7 % (11.8-14.6); RBC DIS.WIDTH-SD 51.5 % (39-53); RED BLOOD COUNT 4.05 M/uL (3.80-5.20); WHITE BLOOD COUNT 10.3 K/uL (4.1-10.2)
[2017-08-17 11:40] LABS: ALBUMIN 3.6 g/dL (3.2-4.8); CHLORIDE 99 mEq/L (99-109); POTASSIUM 4.6 mEq/L (3.7-5.4); SODIUM 138 mEq/L (136-147)
[2017-08-17 11:42] LABS: GLUCOSE 272 mg/dL (70-99); TOTAL PROTEIN 7.1 g/dL (6.4-8.3)
[2017-08-17 11:44] LABS: TOTAL BILIRUBIN 0.5 mg/dL (0.0-1.0)
[2017-08-17 11:46] LABS: ALKALINE PHOSPHATASE 109 IU/L (3-129); CREATININE 0.8 mg/dL (0.6-1.3); GFR ESTIMATE (CALCULATED) > 59 mL/min/
[2017-08-17 11:47] LABS: UREA NITROGEN (BUN) 12 mg/dL (9-23)
[2017-08-17 11:48] LABS: AST (GOT) 11 IU/L (2-34)
[2017-08-17 11:49] LABS: ALT (GPT) 10 IU/L (3-49)
[2017-08-17] MEDS ORDERED: MIRALAX17 GM PO (14:29)
[2017-08-17 17:48] VITALS: BP 158/84
== END 2017-08-17 18:00 ==
LOC: EME 10:46
PROVIDERS: Emergency Medicine
DX: K59.00 Constipation, unspecified (principal); R10.9 Unspecified abdominal pain; I11.0 Hypertensive heart disease with heart failure; I50.9 Heart failure, unspecified; J44.9 Chronic obstructive pulmonary disease, unspecified; G47.30 Sleep apnea, unspecified; E11.40 Type 2 diabetes mellitus with diabetic neuropathy, unspecified; E03.9 Hypothyroidism, unspecified; G25.81 Restless legs syndrome; F41.9 Anxiety disorder, unspecified; F32.9 Major depressive disorder, single episode, unspecified; E66.01 Morbid (severe) obesity due to excess calories; Z68.43 Body mass index [BMI] 50.0-59.9, adult; Z86.718 Personal history of other venous thrombosis and embolism; Z86.711 Personal history of pulmonary embolism; Z79.4 Long term (current) use of insulin; Z88.5 Allergy status to narcotic agent
CPT/HCPCS: 74177; 80053; 83605; 85027; 99281; 99284; J1885